=== PATIENT | male | born 1990 | race Two or more races ===

== ENCOUNTER 2018-01-03 22:12 | Emergency (ER) | payer SELFPAY ==
[~2018-01-03] VITALS: Ht 182.9 cm; Wt 82.1 kg
[2018-01-03 22:14] VITALS: BP 147/89
== END 2018-01-03 23:11 | disposition home or self-care (01) ==
LOC: ED 23:00
DX: L73.9 Follicular disorder, unspecified (principal)
CPT/HCPCS: 99283